=== PATIENT | female | born 1960 | race Caucasian/White ===

== ENCOUNTER 2018-12-08 23:18 | Emergency (ER) | payer BC ==
[~2018-12-08] VITALS: Ht 170.2 cm; Wt 61.2 kg
[2018-12-08 23:39] VITALS: Ht 170.2 cm; Wt 61.2 kg
[2018-12-09 00:41] LABS: BASOPHIL % 0.4 % (0-2); PLATELET COUNT 249 x10^3mcL (130-400); RED CELL DISTRIBUTION WIDTH 12.6 % (11.5-14.5)
[2018-12-09 00:49] LABS: CALCIUM 9.2 mg/dL (8.5-10.1); CHLORIDE SERUM 105 mmol/L (98-107); CREATININE SERUM 0.6 mg/dL (0.6-1.0); GFR1 > 60 mL/min; GLUCOSE SERUM 104 mg/dL (74-106); SODIUM SERUM 142 mmol/L (136-145)
[2018-12-09 00:54] LABS: ALBUMIN 3.8 g/dL (3.4-5.0); ALKALINE PHOSPHATASE 110 U/L (46-116); ALT/SGPT 34 U/L (14-59); AST/SGOT 22 U/L (15-37); BILIRUBIN TOTAL 0.26 mg/dL (0.20-1.00); TOTAL PROTEIN, SERUM 7.6 g/dL (6.4-8.2)
[2018-12-09 01:03] LABS: UA SPECIFIC GRAVITY <=1.005 (1.005-1.035); microscopic required? YES; urine erythrocyte 2+ (NEGATIVE)
[2018-12-09 02:08] VITALS: BP 152/92
== END 2018-12-09 02:08 | disposition home or self-care (01) ==
LOC: ED 23:18
PROVIDERS: Emergency Medicine
DX: R00.2 Palpitations (principal)
CPT/HCPCS: J7030; Q0092